=== PATIENT | male | born 1970 | race Caucasian/White ===

== ENCOUNTER 2024-07-08 08:12 | Inpatient (IN) | payer OTHER ==
[~2024-07-08] VITALS: Ht 188 cm; Wt 105.7 kg
[~2024-07-08 08:12] MED LIST: ASPIRIN325 MG PO; DILAUDID2 MG PO; PYRIDIUM200 MG PO; TAMIFLU75 MG PO; ZOFRAN4 MG PO; ZYRTEC10 M3
[2024-07-08] MEDS ORDERED: LISINOPRIL40 MG PO (08:20)
[2024-07-08] MEDS ORDERED: HYDROmorphone HCL 1 MG/ML SYR IV PRN ×4 (08:30→15:00)
[2024-07-08] MEDS ORDERED: ondansetron HCL 4 MG/2 ML VIAL IV ONE (08:30)
[2024-07-08] MEDS ORDERED: SODIUM CHLORIDE 0.9% 1,000 ML IV ONE (08:30)
[2024-07-08 08:38] LABS: BASOPHILS 0.5 % (0-2); EOSINOPHILS 0.5 % (0-6); HEMATOCRIT 43.6 % (35.0-50.0); HEMOGLOBIN 14.9 g/dL (12.0-18.0); MCH 30.8 (27-36); MCHC 34.2 g/dl (30-36); MONOCYTES 4.2 % (0-12); NEUTROPHILS 80.8 % (39-80); PLATELET COUNT 230 K/uL (140-440); RBC 4.84 M/ul (4.3-5.7); RDW 13.5 (10.5-15.0)
[2024-07-08 08:47] LABS: ALBUMIN 4.5 g/dL (3.4-5.0); ALBUMIN/GLOBULIN RATIO 1.36 (1.1-2.4); ANION GAP 13.1 (7-21); BILIRUBIN, TOTAL 0.4 ng/dL (0.2-1.0); BUN/CREATININE RATIO 12.31 (6.0-28.6); CALCIUM 9.6 mg/dL (8.5-10.1); CREATININE, SERUM 1.38 mg/dL (0.70-1.30); POTASSIUM 4.1 mmol/L (3.5-5.1); PROTEIN, TOTAL 7.8 g/dL (6.4-8.2)
[2024-07-08] MEDS ORDERED: PANTOPRAZOLE SODIUM 40 MG/10 ML VIAL IV SCH (11:43)
[2024-07-08] MEDS ORDERED: CEFTRIAXONE/SODIUM CHLORIDE 2 GM/100 ML PIGGYBACK IV SCH (11:43)
[2024-07-08] MEDS ORDERED: ENOXAPARIN SODIUM 40 MG/0.4 ML SYR SUB-Q SCH (11:43)
[2024-07-08] MEDS ORDERED: ACETAMINOPHEN 325 MG TAB PO PRN (11:45)
[2024-07-08] MEDS ORDERED: ondansetron HCL 4 MG/2 ML VIAL IV PRN ×3 (11:45→15:00)
[2024-07-08] MEDS ORDERED: PROCHLORPERAZINE EDISYLATE 10 MG/2 ML VIAL IV PRN (11:45)
[2024-07-08] MEDS ORDERED: LACTATED RINGER'S 1,000 ML IV SCH (11:45)
[2024-07-08 11:52] LABS: BILIRUBIN, URINE NEGATIVE (negative); BLOOD/HGB, URINE NEGATIVE (Negative); KETONE, URINE NEGATIVE (Negative); LEUK ESTERASE, URINE NEGATIVE (negative); NITRITE, URINE NEGATIVE (negative)
[2024-07-08] MEDS ORDERED: metroNIDAZOLE/SODIUM CHLORIDE 500 MG/100 ML PIGGYBACK IV SCH (12:00)
[2024-07-08] MEDS ORDERED: dexmedeTOMIDine HCl 200 MCG/2 ML VIAL ONE (12:12)
[2024-07-08] MEDS ORDERED: DEXAMETHASONE SOD PHOS 4 MG/ML VIAL ONE (12:12)
[2024-07-08] MEDS ORDERED: propofoL 200 MG/20 ML VIAL ONE (12:12)
[2024-07-08] MEDS ORDERED: fentaNYL citrate 100 MCG/2 ML VIAL ONE (12:12)
[2024-07-08] MEDS ORDERED: MAGNESIUM SULFATE 1 GM/2 ML VIAL ONE (12:12)
[2024-07-08] MEDS ORDERED: KETAMINE in NS 50 MG/5 ML SYR ONE (12:12)
[2024-07-08] MEDS ORDERED: ondansetron HCL 4 MG/2 ML VIAL ONE (12:12)
[2024-07-08] MEDS ORDERED: ROCURONIUM BROMIDE 50 MG/5 ML SYR ONE (12:12)
[2024-07-08] MEDS ORDERED: LIDOCAINE HCL 2% 5 ML SDV ONE (12:12)
[2024-07-08] MEDS ORDERED: SODIUM CHLORIDE 0.9% 40 ML IV ONE (12:13)
[2024-07-08] MEDS ORDERED: ACETAMINOPHEN 1,000 MG/100 ML VIAL ONE (12:13)
[2024-07-08] MEDS ORDERED: SCOPOLAMINE 1 MG/3 DAYS PATCH 1 EACH TDSY ONE (12:22)
[2024-07-08] MEDS ORDERED: iopamidoL 30 ML VIAL ONE (12:31)
[2024-07-08] MEDS ORDERED: SODIUM CHLORIDE 0.9% 60 ML IV ONE (12:31)
[2024-07-08] MEDS ORDERED: LIDOCAINE 1% W/ EPI 1:200,000 30 ML SDV ONE (12:32)
[2024-07-08] MEDS ORDERED: BUPIVACAINE HCL 0.25% 50 ML MDV ONE (12:32)
[2024-07-08] MEDS ORDERED: SUGAMMADEX SODIUM 200 MG/2 ML ML ONE (13:37)
[2024-07-08] MEDS ORDERED: fentaNYL citrate 50 MCG/ML SDV IV PRN (13:45)
[2024-07-08] MEDS ORDERED: droPERidol 5 MG/2 ML VIAL IV PRN (13:45)
[2024-07-08] MEDS ORDERED: IBLOOD GLUCOSE TEST STRIP 1 EA TEST VI PRN (13:45)
[2024-07-08] MEDS ORDERED: KETOROLAC TROMETHAMINE 30 MG/ML VIAL IV PRN (13:45)
[2024-07-08] MEDS ORDERED: NALOXONE HCL 0.4 MG SYR IV PRN (13:45)
[2024-07-08] MEDS ORDERED: HYDROmorphone HCL 4 MG TAB PO PRN (14:15)
[2024-07-08 14:45] VITALS: BP 148/76
[2024-07-08] MEDS ORDERED: OXYCODONE HCL10 MG PO (14:59)
[2024-07-08] MEDS ORDERED: SODIUM CHLORIDE 0.9% 1,000 ML IV SCH (15:00)
[2024-07-08] MEDS ORDERED: TYLENOL EXTRA500 MG PO (15:00)
[2024-07-08] MEDS ORDERED: DILAUDID4 MG PO (15:11)
--- NOTE | 2024-07-08 15:15 | EKG ---
[facility] [address] [facility] [place] [address] Signed Normal sinus rhythm Normal ECG No previous ECGs available Confirmed by Mohini Dickerson MD () on 07/08/2024 3:15:34 PM Electronically Signed By: MOHINI DICKERSON MD 07/08/24 1515 PATIENT NAME: OSIRIS BOTELLO Electrocardiogram DATE OF : 66 PHYSICIAN: MOHINI DICKERSON MD REPORT #: [id number] REPORT IS CONFIDENTIAL AND NOT TO BE RELEASED WITHOUT AUTHORIZATION
[2024-07-08 15:58] VITALS: BP 154/89
[2024-07-08] MEDS ORDERED: SEVOFLURANE 250 ML BTL INH ONE (17:06)
--- NOTE | 2024-07-09 05:35 | OR ---
[facility] [address] [place], [place] [address] Signed DATE OF OPERATION: 07/08/2024 SURGEON: Sid Duvall MD PREOPERATIVE DIAGNOSES: Acute cholecystitis, cholelithiasis. POSTOPERATIVE DIAGNOSES: Acute cholecystitis, cholelithiasis. PROCEDURE: Laparoscopic cholecystectomy without intraoperative cholangiogram. ESTIMATED BLOOD LOSS: None. FINDINGS: Chad indeed had an edematous distended gallbladder. The gallbladder wall was succumbing very friable like wet tissue paper. The cystic duct was small and since we were having trouble with the gallbladder we abandoned the intraoperative cholangiogram. INDICATIONS: Chad is a 53-year-old gentleman who developed epigastric right upper quadrant abdominal pain with nausea and vomiting about 4 a.m. He came to emergency room for evaluation. He was not systemically ill or toxic. He is not jaundiced. His white count was up a little at 11.8. Neutrophils were 80. Liver function tests were fine. Lipase was fine. CT scan of abdomen and pelvis showed a single large stone but the gallbladder wall did not appear thickened. The common bile duct was unremarkable. No obvious pericholecystic fluid. 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 An ultrasound was done and of course he has a large stone in the neck of the gallbladder along with multiple other small stones. The gallbladder was equivocally thickened. The bile ducts were unremarkable. There seemed to be a tiny amount of pericholecystic fluid. I had met with Chad down in the emergency room. I reviewed the above findings with him. I explained to him the location and function of the gallbladder. We discussed laparoscopic versus open cholecystectomy. He understands expected intraop and postop course. We covered the risk including, but not limited to bleeding, infection, scarring, change in contour of the skin, damage to bowel, damage to main bile duct, incisional hernias and other unforeseen comorbidities. He had expressed understanding and wished to proceed. Electronically Signed By: SID DUVALL MD 07/09/24 0535 PATIENT NAME: CHAD BOTELLO OPERATIVE REPORT DATE OF : 66 REPORT #: [id number] PHYSICIAN: SID DUVALL MD PCP: LYN TODD MD REPORT IS CONFIDENTIAL AND NOT TO BE RELEASED WITHOUT AUTHORIZATION [facility] [address] [place], [place] [address] Signed DESCRIPTION OF PROCEDURE: Chad was taken directly from the ER down to our operating room area. He was placed in the supine position under general endotracheal tube anesthesia. He was given preoperative antibiotics along with subcutaneous Lovenox. SCDs were utilized. He was prepped and draped in the usual sterile fashion. All trocars were then placed in their usual positions under direct visualization of camera without difficulty. His gallbladder was so tense we had aspirate out the bile. The gallbladder was then elevated into the right upper quadrant. It took a few minutes to sweep down some adhesions from the surrounding fat. We dissected out the triangle of Calot with our [place] dissector. We found a very small cystic duct. We went ahead and put three sequential clips completely across the duct and then we divided that next to the gallbladder. We found the cystic artery in the same thing. We put a couple of clips across the artery and it was divided. He had a lot of edema in the tissue as we worked the gallbladder off the gallbladder fossa. Eventually it was free, we placed it into an EndoCatch bag. We then used our laparoscopic suturing device to pass 0-Vicryl suture on either side of the fascia of subxiphoid trocar site. This was tied down to close this fascia primarily. The gas was then allowed to escape and all the trocars were removed. The gallbladder was removed and passed off to our circulating nurse for photodocumentation. We then closed the fascia of the supraumbilical trocar site with interrupted [id number]-[id number] and simple 0-Vicryl sutures. Local anesthetic was injected into all trocar sites. Each trocar site was irrigated and suctioned out until clear. The skin and dermis of each trocar site were closed with interrupted 3-0 subcuticular Monocryl sutures. Dry gauze and tape were applied to all incisions. After this, Chad was awakened from his anesthesia, extubated in the OR, taken to recovery room in stable condition. Sid Duvall MD ALB/MODL /[id number] cc: MD Lyn Maharaj MD Electronically Signed By: SID DUVALL MD 07/09/24 0535 PATIENT NAME: CHAD BOTELLO OPERATIVE REPORT DATE OF : 66 REPORT #: [id number] PHYSICIAN: SID DUVALL MD PCP: LYN TODD MD REPORT IS CONFIDENTIAL AND NOT TO BE RELEASED WITHOUT AUTHORIZATION [facility] [address] [place], [place] [address] Signed Copies: SID DUVALL MD ~ Electronically Signed By: SID DUVALL MD 07/09/24 0535 PATIENT NAME: CHAD BOTELLO OPERATIVE REPORT DATE OF : 66 REPORT #: [id number] PHYSICIAN: SID DUVALL MD PCP: LYN TODD MD REPORT IS CONFIDENTIAL AND NOT TO BE RELEASED WITHOUT AUTHORIZATION
--- NOTE | 2024-07-09 05:35 | CONS ---
[facility] [address] [place], [place] [address] Signed DATE OF CONSULTATION: 07/08/2024 CHIEF COMPLAINT: Right upper quadrant abdominal pain. 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 He woke up yesterday around 4 in the morning with abdominal pain mostly bandlike across the upper abdomen with nausea and vomiting. He came to emergency room for evaluation. His vital signs were fine, but he is tender in the upper abdomen, mostly in the right upper quadrant. White count was a little high at 11.8 but his liver function tests were fine. CT scan showed a very large stone but the gallbladder wall was not thickened. The common bile duct was unremarkable. No obvious pericholecystic fluid. Incidentally, he has a urachal diverticulum at the dome of his bladder as an incidental finding. Ultrasound was done and he does have a large stone, several multiple small stones and again the gallbladder wall is equivocal of thickness. The bile ducts were unremarkable. There may be just a tiny amount of pericholecystic fluid. Therefore, I have been asked to see him as a general surgeon on-call. I have come down here to the ER with Chad before we take him down to surgery. PAST MEDICAL HISTORY: Hypertension and nephrolithiasis. PAST SURGICAL HISTORY: Includes an appendectomy, back surgery, kidney stones and a negative colonoscopy. SOCIAL HISTORY: He does not smoke. He has a drink or two each week. He prefers the [facility]. His is Katarzyna at [phone]. Dr. Lyn Shelton is his primary care provider. 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 FAMILY HISTORY: A maternal grandmother had colon cancer. REVIEW OF SYSTEMS: He had 10 systems reviewed, he filled in the above details. ALLERGIES: Demerol, allopurinol, morphine, hydrocodone and oxycodone. He said fentanyl and Dilaudid were fine, but he does try to stay away from pain medication. Electronically Signed By: SID DUVALL MD 07/09/24 0535 PATIENT NAME: CHAD BOTELLO CONSULTATION DATE OF : 66 REPORT #: [id number] PHYSICIAN: SID DUVALL MD PCP: LYN SHELTON MD REPORT IS CONFIDENTIAL AND NOT TO BE RELEASED WITHOUT AUTHORIZATION [facility] [address] [place], [place] [address] Signed MEDICATIONS: Zyrtec and lisinopril 40 mg p.o. daily. PHYSICAL EXAMINATION: VITAL SIGNS: Blood pressure is 143/89, his heart rate is 77, his respiratory rate 15, temperature is 97.7. He is 99% on room air. He is 6 feet 2 inches tall, 105 kg with a body mass index of 29. GENERAL: Chad is a 53-year-old gentleman lying supine, semi-recumbent in his ER bed. He is not systemically ill or toxic. He does not appear to be jaundiced. LUNGS: Clear to auscultation bilaterally. HEART: Regular rate and rhythm without murmurs. ABDOMEN: Generally soft and flat. He has some tenderness mainly in the right upper quadrant. No palpable mass. LABORATORY DATA: His white blood cell count 11.8, neutrophils 80, hemoglobin 14. Electrolytes unremarkable. Creatinine up a little at 1.38. Total bilirubin 0.4, AST 17, ALT 20, alkaline phosphatase is 52, albumin is 4.5, lipase 57. RADIOGRAPHIC STUDIES: CT scan of the abdomen and pelvis is reviewed and he does have a large stone but no gallbladder wall thickening and no dilation of the bile ducts. No obvious pericholecystic fluid, but he has an incidental finding of a urachal diverticulum at the dome of his urinary bladder. Ultrasound shows the large stone along with some smaller stones. The gallbladder wall is equivocally thick. There is no dilation of bile ducts and maybe a tiny amount of pericholecystic fluid. ASSESSMENT AND PLAN: Chad is a 53-year-old gentleman who presents with acute cholecystitis, cholelithiasis. I have reviewed the above findings with him. We have discussed the location and function of the gallbladder. We discussed laparoscopic versus open cholecystectomy. We have reviewed the expected intraop and postop course. There is risk including, but not limited to bleeding, infection, scarring, change in contour of skin, damage to bowel, damage to main bile duct, incisional hernias and other unforeseen comorbidities. He has expressed understanding and would like to proceed. Sid Duvall MD ALB/MODL /[id number] Electronically Signed By: SID DUVALL MD 07/09/24 0535 PATIENT NAME: CHAD BOTELLO CONSULTATION DATE OF : 66 REPORT #: [id number] PHYSICIAN: SID DUVALL MD PCP: LYN SHELTON MD REPORT IS CONFIDENTIAL AND NOT TO BE RELEASED WITHOUT AUTHORIZATION [place] [address] [place] [address] Signed cc: MD Sid Sims MD Copies: SID DUVALL MD ~ Electronically Signed By: SID DUVALL MD 07/09/24 0535 PATIENT NAME: CHAD BOTELLO CONSULTATION DATE OF : 66 REPORT #: [id number] PHYSICIAN: SID DUVALL MD PCP: LYN SHELTON MD REPORT IS CONFIDENTIAL AND NOT TO BE RELEASED WITHOUT AUTHORIZATION
[2024-07-09] MEDS ORDERED: metroNIDAZOLE/SODIUM CHLORIDE 500 MG/100 ML PIGGYBACK IV SCH ×2 (07:00→09:00)
[2024-07-09] MEDS ORDERED: lisinopriL 20 MG TAB PO SCH (09:00)
--- NOTE | 2024-07-10 10:10 | PATH ---
[facility] [address] [place], [place] [address] Signed SPECIMEN(S): A GALLBLADDER AND STONES SPECIMEN SOURCE: A. GALLBLADDER AND STONES CLINICAL HISTORY: Acute cholelithiasis FINAL PATHOLOGIC DIAGNOSIS: Gallbladder, cholecystectomy: - Chronic calculous cholecystitis BRP MICROSCOPIC EXAMINATION: Histologic sections of all submitted blocks are examined by light microscopy. These findings, together with the gross examination, support the pathologic diagnosis. GROSS DESCRIPTION: The specimen, labeled and designated "Betty Sequeira, gallbladder and stones per requisition," is received in formalin and consists of Specimen: Disrupted gallbladder. Dimensions: 10.8 x 4.2 x 1.3 cm. Serosa: Baez-green and smooth. Cystic Duct: Obstructive. Calculi: Presentyellow and botryoid. Mucosa: Green and velvety. Wall thickness: 0.2 cm. Lymph node: No pericystic lymph nodes are grossly identified. Additional: None. Teacher sections are submitted in (A1). AA (under the direct supervision of a pathologist) The Gross Description was prepared using a voice recognition system. The report was reviewed for accuracy; however, sound-alike word errors, addition and/or deletions may occur. If there is any question about this report, please contact Client Services. ADDITIONAL NOTES: Immunohistochemical and/or in situ hybridization studies if performed in this case included appropriate positive controls that reacted as expected. This test was developed and its performance PATIENT NAME: OSIRIS SEQUEIRA PATHOLOGY DATE OF : 66 REPORT #: [id number] PHYSICIAN: SHAWANDA PATHOLOGY PCP: MEKA TODD MD REPORT IS CONFIDENTIAL AND NOT TO BE RELEASED WITHOUT AUTHORIZATION [facility] [address] [place], [place] [address] Signed characteristics determined by [facility]. It has not been cleared or approved by the U.S. Food and Drug Administration. The FDA has determined that such clearance or approval is not necessary. This test is used for clinical purposes. It should not be regarded as investigational or for research. [facility] is certified under the Clinical Laboratory Improvement Amendments of 1988 (CLIA) as qualified to perform high complexity clinical laboratory testing. PERFORMING LABORATORY: Technical component was performed by [facility], [address] [place] [id number] (CLIA# [id number]). Professional interpretation was performed by [facility] [address] [place] [id number] Diagnostician: Hong Turner MD Pathologist Electronically Signed 07/10/2024 Copies: ~ PATIENT NAME: OSIRIS SEQUEIRA PATHOLOGY DATE OF : 66 REPORT #: [id number] PHYSICIAN: SHAWANDA PATHOLOGY PCP: MEKA TODD MD REPORT IS CONFIDENTIAL AND NOT TO BE RELEASED WITHOUT AUTHORIZATION
== END 2024-07-08 17:07 | disposition home or self-care (01) | DRG 419 ==
LOC: ED 08:12 → MS 11:21
PROVIDERS: Emergency Medicine; ADMIT Colon & Rectal Surgery; ATTEND Colon & Rectal Surgery
PROC: 0FT44ZZ Resection of Gallbladder, Percutaneous Endoscopic Approach (ICD-10-PCS; principal; 2024-07-08 12:57)
DX: K80.12 Calculus of gallbladder with acute and chronic cholecystitis without obstruction (principal); N32.3 Diverticulum of bladder; I10 Essential (primary) hypertension; Z87.442 Personal history of urinary calculi; Z90.49 Acquired absence of other specified parts of digestive tract; Z98.890 Other specified postprocedural states; Z79.891 Long term (current) use of opiate analgesic; Z79.899 Other long term (current) drug therapy; Z88.5 Allergy status to narcotic agent; Z88.8 Allergy status to other drugs, medicaments and biological substances
CPT/HCPCS: 00790; 36415; 74177; 76705; 80053; 81003; 83690; 85025; 93005; 93010; 94762; 96361; 96375; 96376; 99285-25; J0131; J0696; J1100; J1171; J1650; J2003; J2405; J2470; J2704; J3010; J3475; J3490; J7030; Q9967

== ENCOUNTER 2024-11-12 06:33 | Emergency (ER) | payer OTHER | END 2024-11-12 09:02 | disposition home or self-care (01) | LOC: ED 06:33 | DX: T78.3XXA Angioneurotic edema, initial encounter (principal); Z88.5 Allergy status to narcotic agent; Z88.8 Allergy status to other drugs, medicaments and biological substances; Z79.899 Other long term (current) drug therapy; Z79.2 Long term (current) use of antibiotics ==